=== PATIENT | female | born 1995 | race African-American/Black ===

== ENCOUNTER 2020-06-27 02:25 | Emergency (ER) | payer BC ==
[2020-06-27] MEDS ORDERED: Fentanyl 100 MCG/2 ML VIAL ONE (03:05)
[2020-06-27] MEDS ORDERED: PROPOFOL 20 ML ONE (03:21)
[2020-06-27] MEDS ORDERED: Ondansetron PF 4 MG/2 ML Vial ONE (03:22)
--- NOTE | 2020-06-27 08:14 | RAD ---
2 views of the left shoulder: 06/27/2020 COMPARISON: None available HISTORY: Injury, trauma, pain FINDINGS: The humeral head projects inferior to the glenoid on the frontal and scapular Y view consis tent with an inferior left glenohumeral joint dislocation. No fracture. No widening of the acromioclavicular or coracoclavicular interspace. IMPRESSION: Inferior glenohumeral joint dislocation on the left.
--- NOTE | 2020-06-27 08:17 | RAD ---
2 views of the left shoulder: 06/27/2020 COMPARISON: Earlier on 06/27/2020 HISTORY: Evaluate the left shoulder following reduction FINDINGS: There has been interval reduction of the previously noted inferior left glenohumeral disloc ation. No acute osseous abnormality. IMPRESSION: Interval reduction of the left glenohumeral joint dislocation.
== END 2020-06-27 04:00 | disposition home or self-care (01) ==
LOC: ERS 02:25
DX: S43.015A Anterior dislocation of left humerus, initial encounter (principal); J45.909 Unspecified asthma, uncomplicated; X58.XXXA Exposure to other specified factors, initial encounter; Y99.0 Civilian activity done for income or pay
CPT/HCPCS: 23650; 96374; 99152; J2405; J2704; J3010

== ENCOUNTER 2020-07-26 08:16 | Outpatient (CLI) | payer OTHER ==
[2020-07-26 08:58] LABS: BHCG - Serum Negative (NEGATIVE); Pregs Control Background? CLEAR/WHITE (CLR/WHITE); Pregs Control Bar Appear? YES (CONTROL BAR)
[2020-07-26] MEDS ORDERED: EPINEPHrine 1 MG/ML AMP ONE (09:00)
[2020-07-26] MEDS ORDERED: Gadobenate Dimeglumine 529 MG/1 ML (20ML VIAL) ONE (09:00)
[2020-07-26] MEDS ORDERED: Lidocaine 1% PF 10 ML AMP ONE (09:00)
[2020-07-26] MEDS ORDERED: Iopamidol 300 61% 50 ML VIAL FS ONE (09:00)
--- NOTE | 2020-07-26 10:24 | RAD ---
ARTHROGRAM LEFT SHOULDER: DATE: 07/26/2020 HISTORY: 25-year-old female with persistent left shoulder pain after shoulder dislocation one month ago. Evalu ate for ligamentous or tendinous traumatic injury TECHNIQUE: Signed informed consent obtained. Anterior skin of shoulder prepared and draped in usual sterile fash ion. 25-gauge needle used to apply buffered lidocaine. Under brief, intermittent fluoroscopy, a 22-gauge spinal needle was advanced into the intracapsular space of the glenohumeral joint. A total o f8 mL of normal saline solution containing MultiHance gadolinium-based contrast agent, Isovue-300 iodinated contrast agent, lidocaine, and epinephrine, was injected. Needle was removed. Patient he ated the procedure well. No complications. FINDINGS: Good distribution of contrast material within intracapsular glenohumeral joint space. IMPRESSION: 1.) Successful shoulder arthrogram. 2.) see separate report of subsequent MRI arthrogram of shoulder.
[2020-07-26] MEDS ORDERED: Magnevist 469MG/ML 20 ML VIAL ONE (10:40)
--- NOTE | 2020-07-26 12:00 | MRI ---
POST ARTHROGRAM MRI OF LEFT SHOULDER PERFORMED WITH CONTRAST: Date: 07/26/2020 HISTORY: Left shoulder pain after dislocation a month ago. Contrast injection was performed by Dr. Cruz, with good opacification of the joint space. COMPARISON: 06/27/2020 plain film examination. FINDINGS: AC joint is unremarkable. The supra and infraspinatus tendons are intact. Subscapularis muscle and tendon are normal in appearance. Biceps tendon is normal in position within the bicipital groove. Bicipital labral complex is intact. There are no signs of any SLAP-type tear. Glenoid maintains a normal shape. There is some mild increased signal change of the inferior labrum, better appreciated on the T2 sequence and the proton density sequence. This does not appear to repres ent contrast as on the T1 sequence there is no contrast extending into this area. This probably repre sents an area of scarring or granulation along the inferior margin of the glenoid labrum. Anterior in ferior labrum is intact. There are no signs of any posterior labral tear. IMPRESSION: Slight amorphous appearance to the inferior labrum, which also may be slightly truncated in appearanc e. This probably represents injury and scarring to the labrum related to the inferior glenoid disloca tion with the labrum having a slightly irregular appearance in this area. Anterior inferior labrum is intact. These changes of the inferior labrum extend to the posterior inferior and inferior labrum ju nction, probably representing a tear that has scarred. Changes are also at the level of the posterior band of the inferior glenohumeral ligament which would indicate some associated ligamentous fraying. POS: OFF
== END 2020-07-26 08:17 | disposition home or self-care (01) ==
LOC: RAD 08:16
PROVIDERS: ATTEND Family Medicine
DX: S43.015D Anterior dislocation of left humerus, subsequent encounter (principal)
CPT/HCPCS: 23350; 36415; 84703; A9577; A9579; J0171; J2001; Q9967